=== PATIENT | female | born 1980 ===

== ENCOUNTER 2017-12-01 06:00 | Inpatient (IN) | payer OTHER ==
[2017-12-01] MEDS ORDERED: TERBUTALINE SULFATE 1 MG/ML VIAL IV PRN (09:49)
[2017-12-01] MEDS ORDERED: OLIVE OIL 118 ML BTL MISC PRN (09:49)
[2017-12-01] MEDS ORDERED: EPSOM SALT 454 GM TP PRN (09:49)
[2017-12-01] MEDS ORDERED: LIDOCAINE 1% 300 MG/30 ML SDV SC PRN (09:49)
[2017-12-01] MEDS ORDERED: IBUPROFEN 600 MG TAB PO PRN (09:49)
[2017-12-01] MEDS ORDERED: MISOPROSTOL 200 MCG TAB PR PRN (09:49)
[2017-12-01] MEDS ORDERED: OXYTOCIN/RINGERS LACTATE 1,000 ML IV PRN (09:49)
[2017-12-01] MEDS ORDERED: LR 1,000 ML IV PRN (09:49)
[2017-12-01 10:27] LABS: PLATELET COUNT 151 10^3/uL (150-400)
[2017-12-01] MEDS ORDERED: LIDOCAINE 1% 300 MG/30 ML SDV ONE (10:59)
[2017-12-01] MEDS ORDERED: OLIVE OIL 118 ML BTL ONE (10:59)
[2017-12-01] MEDS ORDERED: AMMONIA AROMATIC 1 EACH AMP IH ONE (10:59)
[2017-12-01] MEDS ORDERED: MISOPROSTOL 200 MCG TAB ONE (11:00)
[2017-12-01] MEDS ORDERED: OXYTOCIN 10 UNIT/ML VIAL ONE (11:00)
[2017-12-01] MEDS ORDERED: TERBUTALINE SULFATE 1 MG/ML VIAL ONE (11:00)
[2017-12-01] MEDS ORDERED: OXYTOCIN/RINGERS LACTATE 500 ML IV SCH (11:00)
[2017-12-01] MEDS ORDERED: PHENYLEPHRINE HCL 100 MCG/ML SYR IVP PRN (15:31)
[2017-12-01] MEDS ORDERED: ONDANSETRON 4 MG/2 ML VIAL IVP PRN (15:31)
[2017-12-01] MEDS ORDERED: NALOXONE HCL 0.4 MG/ML INJ IVP PRN (15:31)
[2017-12-01] MEDS ORDERED: PHENYLEPHRINE HCL 100 MCG/ML SYR ONE (15:39)
[2017-12-01] MEDS ORDERED: BUPIVACAINE 0.25% 30 ML SDV ONE (15:39)
[2017-12-01] MEDS ORDERED: fentaNYL 100 MCG/2 ML INJ ONE (15:40)
[2017-12-01] MEDS ORDERED: LR 500 ML IV SCH (16:00)
[2017-12-01] MEDS ORDERED: fentaNYL 2MCG/ML/BUP 0.1% RTU 100 ML EP SCH (16:00)
[2017-12-01] MEDS ORDERED: fentaNYL 200 MCG, BUPIVACAINE 0.5% 20 ML in NS 100 ML EP SCH (16:00)
--- NOTE | 2017-12-01 16:17 | PREANESOB ---
Obstetric Pre-Anesthesia Info - General Info Proposed Procedure: labor : 3 Para: 2 WILL: 12/05/17 Gestational Age: 39 week(s) and 3 day(s) - Info Status: Full Term Monitors: External FHR Pattern: Reassuring - Labor Status Indications for Labor Analgesia: Augmentation of Labor, Induction of Labor Labor Epidural: Proposed (tiup for elective induction) Anesthesia ROS: positive for cold urticaria, denies other abnormals, nkda Allergies/Adverse Reactions: Allergy/AdvReac Type Severity Reaction Status Date / Time No Known Allergies Allergy Unverified 12/01/17 09:49 Visit Medications: Generic Name Dose Route Start Last Admin Trade Name Freq PRN Reason Stop Dose Admin Diphenhydramine HCl 25 - 50 mg 12/01/17 15:31 Benadryl Injection IVP 05/30/18 15:30 Q6HRS PRN Itching Ephedrine Sulfate 10 mg 12/01/17 15:31 Ephedrine Sulfate IV 05/30/18 15:30 .Q2M PRN Hypotension Lactated Ringer's 1,000 mls @ 0 mls/hr 12/01/17 09:49 12/01/17 10:48 Lr IV 12/02/17 09:48 1,000 mls PRN PRN Administration SEE PROTOCOL CONDITIONS Protocol Per Protocol Oxytocin/Lactated Ringer's 1,000 mls @ 125 mls/hr 12/01/17 09:49 Pitocin 20 Units/Lr (Premix) IV PRN PRN Post bleeding Oxytocin/Lactated Ringer's 500 mls @ 0 mls/hr 12/01/17 11:00 12/01/17 10:48 Pitocin 30 Units/Lr (Premix) IV 05/30/18 10:59 500 mls CONT CK Administration Per Protocol Lactated Ringer's 500 mls @ 0 mls/hr 12/01/17 16:00 Lr IV 05/30/18 15:59 CONT CK As Directed Fentanyl 200 mcg/ Bupivacaine 100 mls @ 0 mls/hr 12/01/17 16:00 HCl 20 ml/ Sodium Chloride EP 12/11/17 15:59 CONT CK Protocol As Directed Ibuprofen 600 mg 12/01/17 09:49 Motrin PO ONCE PRN post , pain Lidocaine HCl 300 mg 12/01/17 09:49 Lidocaine Hcl 1% SC 05/30/18 09:48 ONCE PRN episiotomy Magnesium Sulfate 454 gm 12/01/17 09:49 Epsom Salt TP 05/30/18 09:48 Q1H PRN perineal discomfort Misoprostol 800 - 1,000 mcg 12/01/17 09:49 Cytotec NM ONCE PRN Vaginal Atony/Bleeding Naloxone HCl 0.4 mg 12/01/17 15:31 Narcan IVP 05/30/18 15:30 PRN PRN Respiratory depression [place]anca Oil 118 ml 12/01/17 09:49 Sweet Oil MISC 05/30/18 09:48 ONCE PRN perineal massage Ondansetron HCl 4 mg 12/01/17 15:31 Zofran IVP 12/02/17 15:30 Q4HRS PRN Nausea/Vomiting, Can't Take PO Phenylephrine HCl 100 mcg 12/01/17 15:31 Neosynephrine IVP 05/30/18 15:30 .Q2M PRN Hypotension Terbutaline Sulfate 0.25 mg 12/01/17 09:49 Brethine IV 05/30/18 09:48 ONCE PRN Tachysystole Discontinued Medications Generic Name Dose Route Start Last Admin Trade Name Freq PRN Reason Stop Dose Admin Ammonia (Aromatic Spirit) Confirm 12/01/17 10:59 Ammonia Aromatic Administered 12/01/17 11:00 Dose 1 each IH .STK-MED ONE Bupivacaine HCl Confirm 12/01/17 15:39 Sensorcaine 0.25% Sdv Administered 12/01/17 15:40 Dose 30 ml .ROUTE .STK-MED ONE Fentanyl Confirm 12/01/17 15:40 Sublimaze Administered 12/01/17 15:41 Dose 100 mcg .ROUTE .STK-MED ONE Lidocaine HCl Confirm 12/01/17 10:59 Lidocaine Hcl 1% Administered 12/01/17 11:00 Dose 300 mg .ROUTE .STK-MED ONE Misoprostol Confirm 12/01/17 11:00 Cytotec Administered 12/01/17 11:01 Dose 1,000 mcg .ROUTE .STK-MED ONE [place]amanca Oil Confirm 12/01/17 10:59 Sweet Oil Administered 12/01/17 11:00 Dose 118 ml .ROUTE .STK-MED ONE Oxytocin Confirm 12/01/17 11:00 Pitocin Administered 12/01/17 11:01 Dose 40 unit .ROUTE .STK-MED ONE Phenylephrine HCl Confirm 12/01/17 15:39 Neosynephrine Administered 12/01/17 15:40 Dose 1,000 mcg .ROUTE .STK-MED ONE Terbutaline Sulfate Confirm 12/01/17 11:00 Brethine Administered 12/01/17 11:01 Dose 1 mg .ROUTE .STK-MED ONE - Anesthesia History Response to Local Anesthetics: Normal Anesthesia & Operative History: No Prior Problems Family Anesthesia History: Negative - Social History Substance Use/Abuse: Denies - Vital Signs Height/Weight (Nursing): Height 167.64 cm Weight 67.132 kg - Focused Exam Neck exam: FROM Mallampati Score: Class 2 Mouth exam: normal dental/mouth exam Pulmonary: no respiratory distress Cardiovascular: regular rate and rhythym Labs: 12/01/17 10:15 Patient ABO/Rh A POSITIVE 12/01/17 10:15 - Plan Anesthetic Plan: helga Consent Signed and on Chart: Yes Patient/Guardian Understands and Agrees to Plan: Yes Urgent/Emergent Case: Tony zavala completed preop but documented later for safe timely pt care
--- NOTE | 2017-12-01 18:07 | OBPROG ---
Labor Progress Note Assessment/Plan: Assessment: 36 y/o @ 39 3/7 wks for elective IOL Plan: Pitocin at 10 mu/min, cont per protocol s/p epidural, pt is comfortable SROM - clear fluid noted FHTs - Cat II tracing with intermittent late decels secondary to HOTN right after epidural placed; HOTN fixed and late decels resolved; now with intermittent variable decels; will cont to closely monitor Anticipate 12/01/17 18:04 Subjective/Intrapartum Course: 12/01/17 18:06 Pt is comfortable, s/p epidural. She laid down after epidural and was leaking fluid. Objective: 12/01/17 10:15 Patient ABO/Rh A POSITIVE 12/01/17 10:15 - SVE Dilation (cm): 5 Effacement (%): 90 Station: 0 Membranes: SROM Amniotic Fluid Color: Clear - Contraction Pattern Assessment Current Contraction Pattern: Regular - FHR Assessment Rudd FHR (bpm): 140 FHR Pattern Variability: Moderate FHR Category: 2 - AP Antepartum Course: 12/01/17 18:07 IUP @ 39 3/7 wks for elective IOL; AMA with neg NIPT; h/o shoulder dystocia with G1, EFW at 36 wks was 81%-pt desires trial of labor and declines c/s. Oxytocin Orders Assessment - Pre-Induction/Augmentation Assessment Gestational Age: 39 week(s) and 3 day(s) ICD10 Worksheet Patient Problems: Problems Problem Status Onset AMA (advanced maternal age) multigravida 35+ Acute Encounter for elective induction of labor Acute - ICD10 Problem Qualifiers (1) Encounter for elective induction of labor (2) AMA (advanced maternal age) multigravida 35+
--- NOTE | 2017-12-01 19:10 | GHP ---
[f rep st] HISTORY AND PHYSICAL DATE OF ADMISSION: 12/01/2017 ADMISSION DIAGNOSES: 1. Intrauterine at 39 weeks and 3 days. 2. Elective induction of labor. HISTORY OF PRESENT ILLNESS: The patient is a 36-year-old 3, para 2-0-0- 2, at 39 weeks and 3 days with an estimated due date of 12/05/2017, by last menstrual period 02/27/2017 and confirmed by first trimester ultrasound. The patient presents for an elective induction of labor. The patient states good movement. She is irregularly luiz. Denies any leakage of fluid or vaginal bleeding. The patient does have good care at [facility] and presented in her first trimester. is complicated by advanced maternal age. All noninvasive genetic testing was negative. The patient does have a history of shoulder dystocia with her second baby, G2, and declines a at this time. 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 The patient was diagnosed at age 26 and is on Kineret subcu daily to every other day to control her symptoms. She is followed by wirer helper, Dr. Ruiz. On anatomy scan, normal anatomy was seen, with an estimated weight 74 percentile, anterior placenta. A followup growth ultrasound was done in late third trimester secondary to history of shoulder dystocia. On this ultrasound, estimated weight was 81 percentile, normal fluid at 18 cm, and cephalic. Again, we discussed the risks of vaginal delivery with a shoulder dystocia versus , and the patient desires a trial of labor and wants an induction of labor at 39 weeks. The patient did receive Tdap in the , and GBS culture is negative. PAST OB HISTORY: In 2010, she delivered a viable male at 39 weeks, weighing 8 pounds 11 ounces, vaginal delivery, positive GBS. 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 In March 2013, she delivered a viable female infant at 39 weeks, weighing 7 pounds 10 ounces, vaginal delivery complicated by shoulder dystocia. 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 Cycles every 28 days for 5- 6 days. LMP 02/27/2017. Positive test 03/23/2017. The patient also has a history of 1 abnormal Pap smear 15 years ago. Repeat Pap was negative as well as subsequent Pap smears. The patient does have a history of ulcerative vulvar lesions in 2010. HSV culture was negative, however, tested positive for HSV a year ago. Sh has no recent genital outbreaks. CURRENT MEDICATIONS: Include vitamins, Kineret as well as fish oil. ALLERGIES: No known drug allergies. PAST MEDICAL HISTORY: CAPS, familial cold urticaria, ocular headaches. PAST SURGICAL HISTORY: Right knee surgery in 2001 and eye surgery in 2014. FAMILY HISTORY: Mother, hypothyroid. Maternal aunt, niece, mom, sister, and son all with the CAPS. SOCIAL HISTORY: The patient is . She lives with her and their 2 children, Hood and Uriel. 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 Denies any alcohol, tobacco, or illicit drug use. REVIEW OF SYSTEMS: Ten-point review of systems is negative. Pertinent positives noted in HPI. LABS: A positive, antibody negative. RPR nonreactive. Rubella immune. Hepatitis B surface antigen negative. HIV negative. Standard panel was negative on 05/10/2017. TSH is 0.88. Parvovirus immune. Urine culture negative. Pap, chlamydia, and gonorrhea cultures all negative on 12/02/2016. Single AFP negative on 06/22/2017. Innatal screen negative on 05/23/2017. One- hour Glucola 85. H and H are 11.9 and 37. GBS culture is negative. PHYSICAL EXAMINATION: VITAL SIGNS: On admission, vital signs are stable. Patient is afebrile. GENERAL: The patient is a well-nourished, well-developed female. Alert and oriented x3. In no apparent distress. CARDIOVASCULAR: Regular rate and rhythm. LUNGS: Clear to auscultation bilaterally. ABDOMEN: Gravid, soft, nontender, nondistended. PELVIC: On admission, found to be 2-3 cm, 80% effaced, -2 station, questionable ruptured membranes, cephalic. EXTREMITIES: Normal to inspection without calf tenderness or edema. heart tones are Category 1 tracing, with baseline 140s. Positive accelerations, no decelerations. Moderate variability. On toco, she is luiz occasionally. ASSESSMENT AND PLAN: The patient is a 36-year-old 3, para 2-0-0-2, at 39 weeks and 2 days, who presents for an elective induction of labor. 1. Admit to Labor and Delivery for elective IOL. 2. Will start Pitocin per protocol. 3. GBS is negative, no prophylactic antibiotics are needed. 4. Anticipate spontaneous vaginal delivery. /[id number]/MODL MTDD
[2017-12-01] MEDS ORDERED: HYDROCODONE/APAP 5/325 TAB PO PRN (20:18)
[2017-12-01] MEDS ORDERED: SIMETHICONE 80 MG TAB CHEW PO PRN (20:18)
[2017-12-01] MEDS ORDERED: HYDROCORTISONE 0.5% CREAM TP PRN (20:18)
--- NOTE | 2017-12-01 20:22 | OBDEL ---
Info Type: Vaginal Presentation at Delivery: Vertex L&D Analgesia/Anesthesia Type: Epidural GBS+: No Intrapartum Medications: Generic Name Dose Route Start Last Admin Trade Name Freq PRN Reason Stop Dose Admin Lactated Ringer's 1,000 mls @ 0 mls/hr 12/01/17 09:49 12/01/17 10:48 Lr IV 12/02/17 09:48 1,000 mls PRN PRN Administration SEE PROTOCOL CONDITIONS Protocol Per Protocol Oxytocin/Lactated Ringer's 500 mls @ 0 mls/hr 12/01/17 11:00 12/01/17 10:48 Pitocin 30 Units/Lr (Premix) IV 05/30/18 10:59 500 mls CONT CK Administration Per Protocol - Hospital Course Intrapartum: 12/01/17 18:06 Pt is comfortable, s/p epidural. She laid down after epidural and was leaking fluid. Indications for Delivery: Elective (IOL) Vaginal Delivery - Delivery Provider Delivery Physician/CNM: Camila Villegas - Labor and Delivery Onset of Contractions Date: 12/01/17 Onset of Contractions Time: 15:15 Onset of Contractions Type: Augmented Rupture of Membranes Date: 12/01/17 Rupture of Membranes Time: 15:15 Rupture of Membranes Type: Spontaneous Amniotic Fluid Color: Clear Dilation Complete Date: 12/01/17 Dilation Complete Time: 18:19 Placenta Delivery Date: 12/01/17 Placenta Delivery Time: 20:05 Total Hours of Labor: 4 Laceration: Other (Specify) (Midline vaginal lac) Repair: 3-0, Vicryl Vaginal Sponge Count Correct: Yes Vaginal Needle Count Correct: Yes Vaginal Sweep Performed: Yes EBL: 250 cc Delivery Events: None Delivery Comment: A viable female infant in direct OP position born at 1999 over intact perineum with 8 and 9 Apgars; to maternal abdomen. Delayed cord clamping x 60 sec. Cord clamped x 2 and then cut. Cord blood obtained. Placenta delivered spontaneously with gentle traction with 3-vc. Perineum intact and inspection reveals a midline vaginal lac repaired with 3-0 Vicryl suture, a [id number] stitch. Fundal firm below umb with minimal bleeding. No complications. - Medications Labor Augmentation/Induction Methods Used: Pitocin Labor Augmentation/Induction Indication: Elective (IOL) Data WILL: 12/05/17 Gestational Age: 39 week(s) and 3 day(s) Rudd Delivery Date: 12/01/17 Delivery Time: 20:00 Sex of Infant: Female Score (1 Min): 8 Score (5 Min): 9 ICD10 Worksheet Patient Problems: Problems Problem Status Onset AMA (advanced maternal age) multigravida 35+ Acute Encounter for elective induction of labor Acute (spontaneous vaginal delivery) Acute - ICD10 Problem Qualifiers (1) Encounter for elective induction of labor (2) AMA (advanced maternal age) multigravida 35+ (3) (spontaneous vaginal delivery)
[2017-12-02] MEDS: DOCUSATE SODIUM 100 MG CAP PO PRN ×2 (09:19→16:10)
[2017-12-02] MEDS: IBUPROFEN 600 MG TAB PO PRN ×3 (09:19→21:36)
--- NOTE | 2017-12-02 09:51 | POSTANESTH ---
Post Anesthetic Evaluation Cardiovascular Status: Normal, Stable Respiratory Status: Normal, Stable Level of Consciousness/Mental Status: Can Participate in Eval Pain Control: Adequate, Prn Tx Ordered Nausea/Vomiting Control: Adequate, Prn Tx Ordered Complications Possibly Related to Anesthesia: None Noted
--- NOTE | 2017-12-02 10:17 | OBPP ---
Progress Note Assessment/Plan: Assessment: 36 y/o s/p at 39.3 weeks ega PPD#1 Plan: Routine PP care Plan discharge tomorrow 12/02/17 10:14 Subjective/ Course: 12/02/17 10:18 Patient is doing well this morning. Reports lochia to be light/mod, pain controlled with oral medication, tolerating regular diet and voiding. is going well. Objective: 12/01/17 10:15 Patient ABO/Rh A POSITIVE 12/01/17 10:15 Temp Pulse Resp BP Pulse Ox 36.8 C 56 L 14 94/61 L 97 12/02/17 08:45 12/02/17 08:45 12/02/17 08:45 12/02/17 08:45 12/02/17 08:45 VSS Respirations unlabored Extremities with minimal edema Lochia scant Fundus firm Perineum healing well Nipples intact Uterine Position/Fundal Height: At Umbilicus Uterine Tone: Firm
[2017-12-03] MEDS: IBUPROFEN 600 MG TAB PO PRN ×2 (03:10→10:59)
[2017-12-03 10:09] VITALS: BP 107/68
[2017-12-03] MEDS: DOCUSATE SODIUM 100 MG CAP PO PRN (10:58)
--- NOTE | 2017-12-03 12:10 | OBPP ---
Progress Note Assessment/Plan: Assessment: s/p PPD # 2 - pt is stable Plan: Plan for d/c home today INstructions reviewed with pt No RX Cont Motrin, iron and colace Cont PNV Pelvic rest RTC in 4 and 6 weeks for pp check 12/03/17 12:07 Subjective/ Course: 12/02/17 10:18 Patient is doing well this morning. Reports lochia to be light/mod, pain controlled with oral medication, tolerating regular diet and voiding. is going well. 12/03/17 12:08 Pt seen and examined. Doing well, she is pretty tired. Mild cramping, taking Motrin. Mod lochia. Pt is OOB, genet regular diet, voiding and passing flatus. Small BM x 2. BF without difficulty-cluster feeding last night. Ready to go home. Objective: 12/01/17 10:15 Patient ABO/Rh A POSITIVE 12/01/17 10:15 Temp Pulse Resp BP Pulse Ox 36.6 C 68 14 107/68 96 12/03/17 09:15 12/03/17 09:15 12/03/17 09:15 12/03/17 09:15 12/03/17 09:15 Uterine Position/Fundal Height: Umbilicus -2 Uterine Tone: Firm Physical Exam - Physical Exam Respiratory: lungs clear, normal breath sounds Cardiac/Chest: regular rate, rhythm Abdomen: normal bowel sounds, non-tender, soft, flatus (+) Extremities: non-tender, normal inspection Skin: normal color, warm/dry Neuro/Psych: alert, normal mood/affect, oriented x 3
--- NOTE | 2017-12-03 12:10 | OBGCSDC ---
General Delivery Information - General Info : 3 Para: 3 Abortions: 0 Type: Vaginal L&D Analgesia/Anesthesia Type: Epidural Admission Date: 12/01/17 Labs: Patient ABO/Rh A POSITIVE 12/01/17 10:15 Hct 37.9 % (38.0-47.0) L 12/01/17 10:15 - Hospital Course Antepartum: 12/01/17 18:07 IUP @ 39 3/7 wks for elective IOL; AMA with neg NIPT; h/o shoulder dystocia with G1, EFW at 36 wks was 81%-pt desires trial of labor and declines c/s. Intrapartum: 12/01/17 18:06 Pt is comfortable, s/p epidural. She laid down after epidural and was leaking fluid. : 12/02/17 10:18 Patient is doing well this morning. Reports lochia to be light/mod, pain controlled with oral medication, tolerating regular diet and voiding. is going well. 12/03/17 12:08 Pt seen and examined. Doing well, she is pretty tired. Mild cramping, taking Motrin. Mod lochia. Pt is OOB, genet regular diet, voiding and passing flatus. Small BM x 2. BF without difficulty-cluster feeding last night. Ready to go home. Vaginal - Delivery Provider Delivery Physician/CNM: Camila Villegas - Diagnosis Labor: Augmented Rupture of Membranes Type: Spontaneous Amniotic Fluid Color: Clear Laceration: Other (Specify) (Midline vaginal lac) Repair: 3-0, Vicryl Delivery Events: None - Delivery EBL: 250 cc Papillion Data WILL: 12/05/17 Gestational Age: 39 week(s) and 5 day(s) Rudd Delivery Date: 12/01/17 Delivery Time: 20:00 Sex of Infant: Female Weight (gm): 3648 g Score (1 Min): 8 Score (5 Min): 9 Discharge Information - Discharge Information Condition: Good Instruction/Follow Up: Four Weeks, Six Weeks
== END 2017-12-03 13:00 | disposition home or self-care (01) | DRG 775 ==
LOC: FLD 09:34 → FOB 22:34
PROVIDERS: ADMIT Obstetrics & Gynecology; ATTEND Obstetrics & Gynecology
DX: O70.1 Second degree perineal laceration during delivery (principal); Z37.0 Single live birth; Z3A.39 39 weeks gestation of pregnancy
CPT/HCPCS: J2370; J2590; J3010; J3105